=== PATIENT | female | born 1935 | race Caucasian/White ===

== ENCOUNTER 2017-12-08 13:47 | Outpatient (CLI) | payer OTHER ==
--- NOTE | 2017-12-09 07:54 | DI ---
EXAM: Radiographs, left knee HISTORY: Left knee pain. COMPARISON: None available. TECHNIQUE: Three views. FINDINGS: The bones are demineralized. Severe medial compartment joint space narrowing noted with a ssociated marginal osteophyte formation. Severe patellofemoral compartment marginal osteophyte forma tion noted. Moderate lateral compartment marginal osteophyte formation noted. No fracture or disloc ation identified. Chondrocalcinosis noted. Soft tissues are unremarkable save for atherosclerotic c alcifications and venous calcifications. IMPRESSION: Severe osteoarthritis.
== END 2017-12-08 13:48 | disposition home or self-care (01) ==
LOC: RAD 13:47
PROVIDERS: ATTEND Internal Medicine
DX: M25.562 Pain in left knee (principal)